=== PATIENT | female | born 1980 | race Caucasian/White ===

== ENCOUNTER 2019-04-10 21:19 | Emergency (ER) | payer MEDICAID, SELFPAY | END 2019-04-10 23:33 | disposition admitted as inpatient to this hospital (09) | LOC: ER 05-18 07:14 | PROVIDERS: Emergency Provider Family Medicine | DX: F43.21 Adjustment disorder with depressed mood (principal); R45.851 Suicidal ideations | CPT/HCPCS: 80053; 80306; 80307; 81001; 81025; 85025; 99284; 99285 ==

== ENCOUNTER 2019-04-10 21:19 | Inpatient (IN) | payer MEDICAID, SELFPAY ==
[2019-04-10 21:22] VITALS: BP 137/86; PULSE 101; RESP 18; TEMP 36.8; O2SAT 100; BMI 30.2
--- NOTE | 2019-04-10 21:39 | PC.NURSE ---
Patient states she has been under a lot of stress right now and that it worries her that the devil is using her mind and patient states she does not feel like hurting herself but that she did tell her CR group that she knew how she would kill herself if she had to. Patient states she is not suicidal but would like to stay the night for an evaluation.
[2019-04-10 21:45] VITALS: BP 121/85; PULSE 79; RESP 18; TEMP 36.8; O2SAT 100
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
[2019-04-10 22:13] LABS: Basophils # 0.1 10^3/uL (0.0-0.1); Eosinophils # 0.1 10^3/uL (0.0-0.8); Eosinophils % 0.6 %; Hematocrit 40.1 % (37.0-47.0); Hemoglobin 13.1 g/dL (11.5-15.3); Lymphocytes % 20.2 %; Mean Corpuscular HGB Conc 32.7 g/dL (30.0-36.0); Mean Corpuscular Hemoglobin 29.4 pg (28.0-34.0); Mean Corpuscular Volume 90.1 fL (81-99); Mean Platelet Volume 9.1 fL (7.4-10.4); Monocytes # 0.6 10^3/uL (0.2-0.9); Monocytes % 6.1 %; Neutrophils # 7.1 10^3/uL (1.8-7.7); Neutrophils % 71.5 %; Nucleated Red Blood Cells % 0 %; Platelet Count 386 10^3/cmm (130-400); Red Blood Count 4.45 10^6/uL (4.1-5.3); Red Cell Distribution Width 12.7 % (12.1-15.1); White Blood Count 9.9 10^3/uL (4.0-10.0)
[2019-04-10 22:23] LABS: HCG Qualitative Urine. Negative (Negative)
[2019-04-10 22:24] LABS: Add Urine Culture? No; Add Urine Microscopic? YES; Bacteria Urine 1+; Bilirubin Urine Neg (NEGATIVE); Blood Urine Neg (Negative); Glucose Urine UA 4+ (Normal); Ketones Urine Negative (Negative); Leukocyte Esterase Urine Negative (Negative); Nitrate Urine Negative (Negative); Protein Urine 1+ (Negative); RBC Urine 0-4 /hpf (0-2); Squamous Epithelial Cell Urine 0-4 (0-5); Urine Appearance Clear (CLEAR); Urine Color Yellow (Yellow); Urobilinogen Urine Norm (Negative); WBC Urine 0-4 /hpf (0-5); pH Urine 6.5 (5-7)
[2019-04-10 22:30] LABS: Alanine Aminotransferase 11 U/L (0-33); Albumin Level 4.1 g/dL (3.5-5.2); Alkaline Phosphatase 70 IU/L (35-105); Anion Gap 15.2 (5-19); Aspartate Amino Transferase 18 U/L (0-32); Blood Urea Nitrogen 12 mg/dL (6-20); Calcium 9.6 mg/dL (8.5-10.5); Carbon Dioxide 23 mmol/L (22-29); Chloride 99 mmol/L (98-107); Globulin 3.6 g/dL (1.3-4.6); Glomerular Filtration Rate 94.2 mL/min (90-130); Glucose 286 mg/dL (65-115); Potassium 4.2 mmol/L (3.5-5.1); Salicylate 0.7 mg/dL (3-10); Sodium 133 mmol/L (136-145); Total Bilirubin 0.2 mg/dL (0.15-1.2); Total Protein 7.7 g/dL (6.6-8.7)
[2019-04-10 22:40] LABS: Acetaminophen < 5.0 ug/mL (10-30); Alcohol Level < 10 mg/dL (0-10)
[2019-04-10 22:43] LABS: Amphetamines Screen Urine Negative (Negative); Barbiturates Screen Urine Negative (Negative); Benzodiazepines Screen Urine Negative (Negative); Cocaine Screen Urine Negative (Negative); Opiate Screen Urine Negative (Negative); PCP Screen Urine Negative (Negative); THC Screen Urine Negative (Negative)
[2019-04-10 23:33] VITALS: BP 117/74; PULSE 78; RESP 16; O2SAT 96
[2019-04-10 23:58] LABS: Glucose Point of Care 270 mg/dL (70-110)
--- NOTE | 2019-04-10 23:58 | PC.NURSE ---
Patients blood sugar in report from ER was 286. Asked the nurse what the plan was to address that and she had no idea the patient had an insulin pump let alone diabetic. She stated she would ask Dr Saxena and call me back then immediately the phone rang and the housecalls nurse stated ER said we were refusing the patient. I told her what is noted. Patient then came to unit with no return call from ER nurse and no further information on the pump. When addressing the patient she was alarmed that she was not told her blood sugar was that high because she would have done a correction dose. When retaken on our unit, the blood sugar was 270 and 3 units of novolog was administered per pump.
[2019-04-11 06:00] VITALS: BP 95/63; PULSE 65; RESP 18; TEMP 36.6; O2SAT 100
[2019-04-11 06:04] LABS: Glucose Point of Care 31 mg/dL (70-110)
--- NOTE | 2019-04-11 06:10 | PC.NURSE ---
Pt accu check was 31, pt A&O, pt states that 2 OJ s is all she needs, Dr and cook house supervisor notified. STAT lab draw ordered.
[2019-04-11 06:26] LABS: Glucose Point of Care 34 mg/dL (70-110)
--- NOTE | 2019-04-11 06:26 | PC.NURSE ---
Patient blood sugar re check is 34, given 2 orange juices one with sugar. Patient states she feels fine, will continue to monitor.
[2019-04-11 06:45] LABS: Glucose Point of Care 47 mg/dL (70-110)
[2019-04-11 07:16] LABS: Glucose 116 mg/dL (65-115)
[2019-04-11] MEDS: levothyroxine 112 mcg Tablet PO (08:41)
[2019-04-11] MEDS: lisinopril 10 mg Tablet PO (08:41)
[2019-04-11] MEDS: acyclovir 400 mg Tablet PO (08:41)
[2019-04-11] MEDS: levothyroxine 25 mcg Tablet PO (08:41)
[2019-04-11] MEDS: naproxen 500 mg Tablet PO (08:42)
[2019-04-11] MEDS: atorvastatin 40 mg Tablet 80 MG PO (08:42)
[2019-04-11 09:26] VITALS: BP 95/63; PULSE 65; RESP 18; TEMP 36.6; O2SAT 100
[2019-04-11 09:52] VITALS: BP 95/63; PULSE 65; RESP 18; TEMP 36.6; O2SAT 100
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
[2019-04-11 11:42] LABS: Glucose Point of Care 343 mg/dL (70-110)
== END 2019-04-11 11:54 | disposition home or self-care (01) | DRG 881 ==
LOC: ER 21:54 → NP 23:19
PROVIDERS: Admitting Provider Psychiatry & Neurology Psychiatry; Emergency Provider Family Medicine; Visit Provider Psychiatry & Neurology Psychiatry
DX: F43.21 Adjustment disorder with depressed mood (principal); F43.0 Acute stress reaction
CPT/HCPCS: 12345; 36415; 36416; 80053; 80306; 80307; 81001; 81025; 82947; 82962; 85025; 99284; J8499

== ENCOUNTER → 2019-09-03 08:26 | Outpatient (BNVA) | payer MEDICAID, SELFPAY | PROVIDERS: Visit Provider Registered Nurse | DX: N30.00 Acute cystitis without hematuria (principal); N89.8 Other specified noninflammatory disorders of vagina | CPT/HCPCS: 81000 ==

== ENCOUNTER → 2019-09-10 10:09 | Outpatient (BNVA) | payer MEDICAID, SELFPAY | PROVIDERS: Visit Provider Registered Nurse | DX: R82.90 Unspecified abnormal findings in urine (principal) | CPT/HCPCS: 81000 ==

== ENCOUNTER → 2020-03-24 09:09 | Outpatient (BNVA) | payer MEDICAID, SELFPAY | PROVIDERS: PCP Registered Nurse; Referring Provider Registered Nurse; Visit Provider Anesthesiology Pain Medicine | DX: G89.29 Other chronic pain (principal); M25.511 Pain in right shoulder; M79.18 Myalgia, other site | CPT/HCPCS: 20553; 99205; J1030; J3490 ==

== ENCOUNTER → 2020-04-21 08:46 | Outpatient (BNVA) | payer MEDICAID, SELFPAY | PROVIDERS: PCP Registered Nurse; Visit Provider Anesthesiology Pain Medicine | DX: M25.511 Pain in right shoulder (principal); M25.512 Pain in left shoulder | CPT/HCPCS: 99214 ==

== ENCOUNTER 2020-04-27 16:26 | Outpatient (CLI) | payer MEDICAID, SELFPAY | END 2020-04-27 16:27 | disposition home or self-care (01) | LOC: SPT 16:27 | PROVIDERS: PCP Registered Nurse; Visit Provider Podiatrist Foot & Ankle Surgery | DX: Z46.89 Encounter for fitting and adjustment of other specified devices (principal); S92.345D Nondisplaced fracture of fourth metatarsal bone, left foot, subsequent encounter for fracture with routine healing; S92.502D Displaced unspecified fracture of left lesser toe(s), subsequent encounter for fracture with routine healing; X58.XXXD Exposure to other specified factors, subsequent encounter | CPT/HCPCS: 97760; L4361 ==

== ENCOUNTER → 2020-05-18 14:51 | Outpatient (BNVA) | payer MEDICAID, SELFPAY | PROVIDERS: PCP Registered Nurse; Visit Provider Podiatrist Foot & Ankle Surgery | DX: S92.502D Displaced unspecified fracture of left lesser toe(s), subsequent encounter for fracture with routine healing (principal); S92.342D Displaced fracture of fourth metatarsal bone, left foot, subsequent encounter for fracture with routine healing; X58.XXXD Exposure to other specified factors, subsequent encounter | CPT/HCPCS: 73630 ==

== ENCOUNTER → 2020-06-01 13:19 | Outpatient (BNVA) | payer MEDICAID, SELFPAY | PROVIDERS: PCP Registered Nurse; Visit Provider Podiatrist Foot & Ankle Surgery | DX: S92.502D Displaced unspecified fracture of left lesser toe(s), subsequent encounter for fracture with routine healing (principal); X58.XXXD Exposure to other specified factors, subsequent encounter | CPT/HCPCS: 73630 ==

== ENCOUNTER → 2020-06-16 10:18 | Outpatient (BNVA) | payer MEDICAID, SELFPAY | PROVIDERS: PCP Registered Nurse; Visit Provider Anesthesiology Pain Medicine | DX: M54.12 Radiculopathy, cervical region (principal); M25.511 Pain in right shoulder; M25.512 Pain in left shoulder | CPT/HCPCS: 99214 ==

== ENCOUNTER 2020-07-08 10:09 | Outpatient (CLI) | payer MEDICAID, SELFPAY ==
--- NOTE | 2020-07-08 11:00 | CT_ITS ---
WS: [id number] CT cervical spine. Additional two-dimensional coronal and sagittal reconstruction was performed. 07/08 Clinical Data: M54.12 - Radiculopathy, cervical region Comparison: None. DLP: 1572.[address] scans at [facility] use at least one of these dose optimization techniques: automat ed exposure control; mA and/or kV adjustment per patient size (includes targeted exams where dose is matched to clinical indication); or iterative reconstruction. Findings: No compression fractures are seen. The disc heights are normal. The spinous processes are in good ali gnment. The odontoid is unremarkable. There is no prevertebral soft tissue swelling. The soft tissues of the cervical spine and the lung apices are not remarkable. C2-C3: No disc bulge, canal stenosis or foraminal stenosis is seen. C3-C4: No disc bulge, canal stenosis or foraminal stenosis is seen. C4-C5: No disc bulge, canal stenosis or foraminal stenosis is seen. C5-C6: No disc bulge, canal stenosis or foraminal stenosis is seen. C6-C7: No disc bulge, canal stenosis or foraminal stenosis is seen. C7-T1: No disc bulge, canal stenosis or foraminal stenosis is seen. CT/CT cervical spin wo con* [id number] Impression: Negative CT scan of the cervical spine.
== END 2020-07-08 10:10 | disposition home or self-care (01) ==
PROVIDERS: PCP Registered Nurse; Visit Provider Anesthesiology Pain Medicine
DX: M54.12 Radiculopathy, cervical region (principal)
CPT/HCPCS: 72125

== ENCOUNTER → 2020-07-14 09:53 | Outpatient (BNVA) | payer MEDICAID, SELFPAY | PROVIDERS: PCP Registered Nurse; Visit Provider Anesthesiology Pain Medicine | DX: G89.29 Other chronic pain (principal); M54.2 Cervicalgia; M25.511 Pain in right shoulder; M25.512 Pain in left shoulder; G62.9 Polyneuropathy, unspecified | CPT/HCPCS: 99214 ==

== ENCOUNTER → 2020-07-20 10:19 | Outpatient (BNVA) | payer MEDICAID, SELFPAY | PROVIDERS: PCP Registered Nurse; Visit Provider Podiatrist Foot & Ankle Surgery | DX: S92.342D Displaced fracture of fourth metatarsal bone, left foot, subsequent encounter for fracture with routine healing (principal); X58.XXXD Exposure to other specified factors, subsequent encounter | CPT/HCPCS: 73630 ==

== ENCOUNTER → 2020-08-17 10:57 | Outpatient (BNVA) | payer MEDICAID, SELFPAY | PROVIDERS: PCP Registered Nurse; Visit Provider Podiatrist Foot & Ankle Surgery | DX: S92.342A Displaced fracture of fourth metatarsal bone, left foot, initial encounter for closed fracture (principal); X58.XXXA Exposure to other specified factors, initial encounter | CPT/HCPCS: 73630 ==

== ENCOUNTER → 2020-10-27 12:16 | Outpatient (BNVA) | payer MEDICAID, SELFPAY | PROVIDERS: PCP Registered Nurse; Visit Provider Specialist | DX: R20.0 Anesthesia of skin (principal); R20.2 Paresthesia of skin; M54.2 Cervicalgia; M25.511 Pain in right shoulder; M25.512 Pain in left shoulder | CPT/HCPCS: 99204 ==

== ENCOUNTER → 2020-11-23 14:54 | Outpatient (BNVA) | payer MEDICAID, SELFPAY | PROVIDERS: PCP Registered Nurse; Visit Provider Podiatrist Foot & Ankle Surgery | DX: S92.342D Displaced fracture of fourth metatarsal bone, left foot, subsequent encounter for fracture with routine healing (principal); X58.XXXD Exposure to other specified factors, subsequent encounter | CPT/HCPCS: 73630 ==

== ENCOUNTER 2020-11-25 08:41 | Outpatient (CLI) | payer MEDICAID, SELFPAY ==
--- NOTE | 2020-11-25 09:30 | MR_ITS ---
WS: [id number] MRI CERVICAL SPINE NONCONTRAST TECHNIQUE: Sagittal T1, T2 and STIR imaging. Axial T2, gradient, and fiesta imaging. CLINICAL INFORMATION: M54.2 - Cervicalgia COMPARISON: None. FINDINGS: Straightening of the normal cervical lordosis. Cord signal is normal. No high-grade central canal huan rowing. C2-C3: Normal. C3-C4: Mild endplate osteophytic ridging. Mild facet arthropathy. Mild right bony foraminal narrowing . Spinal canal is patent. C4-C5: Disc osteophytic ridging. Mild bilateral bony foraminal narrowing. Mild facet arthropathy. Spi nal canal is patent. C5-C6: Mild disc osteophytic ridging. Mild to moderate left and no significant right foraminal narrow ing. Mild facet arthropathy. Spinal canal is patent. C6-C7: Mild endplate osteophytic ridging. Mild left foraminal narrowing. Spinal canal is patent. Mild facet arthropathy. C7-T1: Mild left bony foraminal narrowing. Right foramen is patent. Spinal canal is patent. Asymmetric enlargement of the right thyroid gland although no visualized nodules. This could be follo wed up with ultrasound. Visualized brain stem structures: Normal. Prevertebral soft tissues: Normal. MR/MR cervical spin wo con* [id number] IMPRESSION: 1. Straightening of the normal cervical lordosis. Cord signal is normal. 2. Osteophytic ridging with multilevel bony foraminal narrowing more prominent at left C4-C5, left C5-C6, and left C6-C7. Mild to moderate left C5-C6 bony fo raminal narrowing. 3. Mild disc bulging C5-C6 and C6-C7. No significant central canal stenosis. 4. Asymmetric enlargement of the right thyroid gland although no visualized no dules. This could be followed up with ultrasound.
== END 2020-11-25 08:42 | disposition home or self-care (01) ==
LOC: RADSHAW 08:44
PROVIDERS: PCP Registered Nurse; Visit Provider Specialist
DX: M54.2 Cervicalgia (principal)
CPT/HCPCS: 72141

== ENCOUNTER → 2020-12-06 12:31 | Outpatient (BNVA) | payer MEDICAID, SELFPAY | PROVIDERS: PCP Registered Nurse; Visit Provider Specialist | DX: G56.03 Carpal tunnel syndrome, bilateral upper limbs (principal); R20.0 Anesthesia of skin; R20.2 Paresthesia of skin | CPT/HCPCS: 95910 ==

== ENCOUNTER → 2021-02-23 12:18 | Outpatient (BNVA) | payer MEDICAID, SELFPAY | PROVIDERS: PCP Registered Nurse; Visit Provider Specialist | DX: M54.12 Radiculopathy, cervical region (principal); E04.8 Other specified nontoxic goiter | CPT/HCPCS: 99214 ==

== ENCOUNTER → 2021-03-10 09:37 | Outpatient (BNVA) | payer MEDICAID, SELFPAY | PROVIDERS: PCP Registered Nurse; Referring Provider Specialist; Visit Provider Specialist | DX: G56.03 Carpal tunnel syndrome, bilateral upper limbs (principal) | CPT/HCPCS: 95861; 99202; 99212 ==

== ENCOUNTER → 2021-08-17 10:59 | Outpatient (BNVA) | payer MEDICAID, SELFPAY | PROVIDERS: PCP Registered Nurse; Visit Provider Registered Nurse | DX: Z79.1 Long term (current) use of non-steroidal anti-inflammatories (NSAID) (principal) | CPT/HCPCS: 80053 ==

== ENCOUNTER → 2021-08-24 13:19 | Outpatient (BNVA) | payer MEDICAID, SELFPAY | PROVIDERS: PCP Registered Nurse; Visit Provider Registered Nurse | DX: Z01.419 Encounter for gynecological examination (general) (routine) without abnormal findings (principal); Z78.9 Other specified health status; Z12.39 Encounter for other screening for malignant neoplasm of breast; G56.03 Carpal tunnel syndrome, bilateral upper limbs; E04.9 Nontoxic goiter, unspecified; E10.9 Type 1 diabetes mellitus without complications; R89.9 Unspecified abnormal finding in specimens from other organs, systems and tissues; N76.0 Acute vaginitis; B96.89 Other specified bacterial agents as the cause of diseases classified elsewhere | CPT/HCPCS: 87070; 87077; 87184; 87205 ==

== ENCOUNTER 2021-09-06 09:14 | Outpatient (CLI) | payer MEDICAID, SELFPAY ==
--- NOTE | 2021-09-06 10:00 | US_ITS ---
WS: [id number] THYROID ULTRASOUND HISTORY: E04.9 - Nontoxic goiter, unspecified COMPARISON: None available. Right lobe: 2.4 cm x 2.2 cm x 5.5 cm (w x ap x l). Volume: 15.0 cm3. Enlarged heterogeneous coarsened thyroid. There is increased vascularity but no discrete nodule. Ther e are areas of increased echogenicity scattered throughout the gland. Left lobe: 1.7 cm x 2.1 cm x 4.4 cm (w x ap x l). Volume: 7.9 cm3. Mildly enlarged heterogeneous thyroid. The LEFT lobe is not as enlarged as the RIGHT although there i s increased vascularity. No nodule. Isthmus: 0.1 cm. US/US thyroid [id number] IMPRESSION: 1. Enlarged thyroid gland with very coarse echotexture mild increased vascular ity. Consider Marivel's thyroiditis. 2. No discrete nodule.
== END 2021-09-06 09:15 | disposition home or self-care (01) ==
LOC: RAD 09:15
PROVIDERS: PCP Registered Nurse; Visit Provider Registered Nurse
DX: E04.9 Nontoxic goiter, unspecified (principal)
CPT/HCPCS: 76536

== ENCOUNTER → 2021-09-19 08:26 | Outpatient (BNVA) | payer MEDICAID, SELFPAY | PROVIDERS: PCP Registered Nurse; Visit Provider Registered Nurse | DX: B96.89 Other specified bacterial agents as the cause of diseases classified elsewhere (principal); N76.0 Acute vaginitis; R89.9 Unspecified abnormal finding in specimens from other organs, systems and tissues | CPT/HCPCS: 87070; 87205 ==

== ENCOUNTER → 2021-10-02 07:59 | Outpatient (BNVA) | payer MEDICAID, SELFPAY | PROVIDERS: PCP Registered Nurse; Referring Provider Registered Nurse; Visit Provider Specialist | DX: G56.03 Carpal tunnel syndrome, bilateral upper limbs (principal) | CPT/HCPCS: 73110; 99204 ==

== ENCOUNTER → 2021-10-10 10:22 | Outpatient (BNVA) | payer MEDICAID, SELFPAY | PROVIDERS: PCP Registered Nurse; Visit Provider Registered Nurse | DX: E06.3 Autoimmune thyroiditis (principal); E03.9 Hypothyroidism, unspecified | CPT/HCPCS: 84432; 84439; 84443; 84481; 86376; 86800 ==

== ENCOUNTER 2021-10-27 07:57 | Day surgery (SDC) | payer MEDICAID, SELFPAY ==
[2021-10-26 09:50] VITALS: BMI 32.0
[2021-10-27 08:25] VITALS: BP 138/81; PULSE 84; RESP 16; TEMP 36.9; O2SAT 100
[2021-10-27] MEDS: sodium chloride 0.9% 1,000 ML 30 ML IV (08:45)
[2021-10-27 08:47] LABS: Glucose Point of Care 240 mg/dL (70-110)
--- NOTE | 2021-10-27 08:56 | ANES.PREANE2 ---
Pre-Anesthetic Assessment Height/Weight: Height 1.57 m Weight 79.379 kg Temp Pulse Resp BP Pulse Ox O2 Del Method 98.5 F 84 16 138/81 100 10/27/21 08:25 10/27/21 08:25 10/27/21 08:25 10/27/21 08:25 10/27/21 08:25 10/27/21 08:26 Preop Diagnosis: Right carpal tunnel syndrome Operation Date: 10/27/21 09:20 Proposed Procedures p Carpal Tunnel Release(Right) - Dodie Estrella MD Familial anesthetic complications: none Was Beta Madie taken within 24 hours: N/A Was Clonidine taken within 24 hours: N/A Last intake: Intake Last Liquid Date 10/26/21 Last Liquid Time 21:50 Last Solid Date 10/26/21 Last Solid Time 22:30 Social No alcohol and No tobacco Exam alert, oriented x 3 and regular rate & rhythm Airway Submandibular: within normal limits Cervical ROM: within normal limits Mallampati: Class II Dentition: false CV/HEM Hypertension Metabolic Diabetes Mellitus [facility] Osteoarthritis/DJD Neuropsych Anxiety, Depression and Neuropathy Anesthetic Plan ASA status: 3 Anesthesia: MAC and Regional (specify below) Medications/Allergies Home Medications Medication Instructions Recorded Confirmed Last Taken Type Novolog Insulin Pump See Rx Instructions .Route .COMPLEX 04/10/19 10/27/21 10/27/21 History lisinopril 10 mg tablet 10 mg PO DAILY 04/10/19 10/27/21 10/26/21 History rosuvastatin 40 mg tablet (Crestor) 40 mg PO DAILY 04/11/19 10/27/21 10/26/21 History ezetimibe 10 mg tablet (Zetia) 10 mg PO DAILY 03/24/20 10/27/21 10/26/21 History Carbon fiber insert #1 ea 06/01/20 10/03/21 Unknown Rx naproxen 500 mg tablet See Rx Instructions .Route 08/17/21 10/27/21 10/26/21 Rx .COMPLEX #60 tabs levothyroxine 200 mcg capsule 200 mcg PO DAILY 30 days #30 caps 10/12/21 10/27/21 10/26/21 Rx acyclovir 400 mg tablet 400 mg PO DAILY 10/27/21 10/27/21 Unknown History Allergies Allergy/AdvReac Type Severity Reaction Status Date / Time azithromycin [From Zithromax] Allergy ALGY-Hives Verified 10/26/21 09:47 oxycodone Allergy Unknown Verified 10/26/21 09:47 Penicillins Allergy Unknown Verified 10/26/21 09:47 [facility] Anesthesia Medical History delivery delivered Hyperlipidemia Hypertension Numbness and tingling of both upper extremities Opioid contract exists Type 1 diabetes mellitus Surgical History History of partial hysterectomy History of tubal ligation Family History Father Cancer Mother side Father Diabetes Social History Smoking and tobacco status: never smoked Alcohol intake: never Adopted: No Caregiver/support person: No Lives independently: No Household members: spouse and children Marital status: Current occupational status: disabled History of recent travel: No Sexually active: Yes Current gender identity: Female Female Reproductive History Date of last menstrual period: 03/28/19 Data Anesthesia Cardiac Studies: No Data to Display
[2021-10-27] MEDS: vancomycin 1,000 MG in sodium chloride 0.9% 250 ML 250 MG IV (09:00)
[2021-10-27] MEDS: CELEcoxib 200 mg Capsule 400 MG PO (09:00)
[2021-10-27] MEDS: acetaminophen 1,000 MG/100 ML PIGGYBACK 400 MG IV (09:21)
--- NOTE | 2021-10-27 09:43 | P.HPUD_ITS ---
Surgery/Procedure H&P Update DATE OF PROCEDURE: October 27, 2021 DATE H&P PERFORMED: 10/02/21 H&P UPDATE INFORMATION: I have reviewed H&P completed within last 30 days, I have examined patient prior to procedure, No changes to prior documentation and H&P is in [facility] [place] on date indicated PREOP DIAGNOSIS: Right carpal tunnel syndrome PLANNED PROCEDURE: Operation Date: 10/27/21 09:20 Proposed Procedures p Carpal Tunnel Release(Right) - Dodie Estrella MD Related Problem List Diagnoses (1) Carpal tunnel syndrome on right:
--- NOTE | 2021-10-27 10:24 | PM.OP ---
Operative Report Date of procedure: October 27, 2021 Pre-op diagnosis: Right carpal tunnel syndrome Post-op diagnosis: Right carpal tunnel syndrome Post-op findings: Significant compression by the transverse carpal ligament across the median nerve. Procedure done: Right carpal tunnel release Specimens removed/disposition: None Pathology: none sent Surgeon: Dodie Estrella Anesthesia: General (Intubated, ASA 3) Estimated blood loss (mL): 2 Tourniquet time (min): 20 At 250 mmHg IV fluids (mL): 200 Urine output (mL): 0 (No Villa) Complications: None Findings: Compression across the median nerve from the transverse carpal ligament Condition: stable Disposition: PACU (Then return to same-day surgery with discharge to home with family) Brief History: Humaira Vizcarra is a new 41 year old female patient who is here today due to bilateral carpal tunnel syndrome.? Patient has NCV from 12/06/20 and EMG from 03/10/[address] Mahoney which were consistent with carpal tunnel syndrome. Patient states that she has bilateral hand numbness when she sleeps on them.? Patient states right hand is worse than left.? Actually, upon further questioning, the patient notes that her hands are rather consistently numb, but she has blamed her diabetes. After consultation in the office, she wished to proceed with right carpal tunnel release. This was scheduled for her. Questions were answered and consents were signed. Procedure: The patient was brought to the operating theater. She had a general intubated anesthesia, ASA 3. The tourniquet was elevated to 250 mmHg for a total tourniquet time of 20 minutes. The patient was also given vancomycin 1 g preoperatively. The arm was then prepped and draped with DuraPrep in usual fashion with the arm draped free. A surgical pause was performed. At the time, the surgical pause, we confirmed the site and side of surgery. We also confirmed the patient's identity, appropriate and timely administration of preoperative antibiotics and preoperative surgical markings. An incision was then made along the thenar crease. The incision crossed the wrist joint in a curvilinear fashion. Dissection continued through skin and soft tissues using a scalpel. The palmaris longus was identified along with the transverse carpal ligament. Each of these was released carefully to avoid injury to the median nerve. We were able to dissect gently into the carpal canal which was noted to be quite tight with significant compression across the median nerve. The nerve was visualized and was an hourglass shape.? Following release of the transverse carpal ligament, the canal was palpated to assure there was no bony encroachment upon the canal. The canal was then palpated distally and proximally to assure that my small finger passed easily without impingement. Finding this to be so, attention was directed to closure. The wound was irrigated with Marcaine plain, and this was also injected into the subcutaneous tissues.? The incision was then closed with 3-0 nylon in an interrupted mattress fashion. Sterile dressing was then placed consisting of Dermabond, OpSite, fluffed fluffs, sterile soft roll, and an Julian wrap. The tourniquet was released after 20 minutes. There were no complications. There were no specimens. The procedure was well tolerated. Plan is the patient will be discharged home. Related Problem List Diagnoses (1) Carpal tunnel syndrome on right:
[2021-10-27 10:27] VITALS: BP 120/71; PULSE 117; RESP 24; TEMP 36.4; O2SAT 100
[2021-10-27 10:32] VITALS: BP 121/64; PULSE 120; RESP 20; O2SAT 100
[2021-10-27 10:38] VITALS: BP 124/79; PULSE 110; RESP 21; TEMP 36.8; O2SAT 100
[2021-10-27 10:43] VITALS: BP 125/83; PULSE 106; RESP 18; TEMP 36.8; O2SAT 100
--- NOTE | 2021-10-27 15:54 | ANE.PACU2 ---
Inpatient post-anesthesia follow up: Airway intact: Yes Vital signs: Temperature 98.3 F Pulse Rate 106 Respiratory Rate 18 Blood Pressure 125/83 Pulse Oximetry 100 Oxygen Delivery Me thod Room Air Oxygen Flow Rate Fraction of Inspir ed Oxygen Hydration adequate: Yes Nausea and vomiting: No Pain level: 2 Mental status: Baseline
== END 2021-10-27 11:32 | disposition home or self-care (01) ==
PROVIDERS: PCP Registered Nurse; Visit Provider Specialist
PROC: (CPT 64721; principal; 2021-10-27 09:20)
DX: G56.01 Carpal tunnel syndrome, right upper limb (principal); I10 Essential (primary) hypertension; E66.01 Morbid (severe) obesity due to excess calories; Z68.32 Body mass index [BMI] 32.0-32.9, adult; Z79.4 Long term (current) use of insulin; E78.5 Hyperlipidemia, unspecified; E10.40 Type 1 diabetes mellitus with diabetic neuropathy, unspecified
CPT/HCPCS: 64721; 36416; 82962; J0330; J1100; J1885; J2405; J2704; J3010; J3370; J3490; J7030; J7050

== ENCOUNTER → 2021-11-08 11:02 | Outpatient (BNVA) | payer MEDICAID, SELFPAY | PROVIDERS: PCP Registered Nurse; Visit Provider Nurse Practitioner Family | DX: Z98.890 Other specified postprocedural states (principal) | CPT/HCPCS: 99024; 99213 ==

== ENCOUNTER 2022-02-28 16:07 | Outpatient (CLI) | payer MEDICAID, SELFPAY | END 2022-02-28 16:08 | disposition home or self-care (01) | LOC: SPT 16:08 | PROVIDERS: PCP Registered Nurse; Visit Provider Specialist | DX: Z46.89 Encounter for fitting and adjustment of other specified devices (principal); G56.02 Carpal tunnel syndrome, left upper limb | CPT/HCPCS: 97760; 99214; L3908 ==

== ENCOUNTER 2022-03-16 08:05 | Day surgery (SDC) | payer MEDICAID, SELFPAY ==
[2022-03-15 10:14] VITALS: BMI 32.0
[2022-03-16 08:16] VITALS: BP 131/70; PULSE 65; RESP 16; TEMP 35.5; O2SAT 100
--- NOTE | 2022-03-16 08:48 | P.ANESASSM_ITS ---
Pre-Anesthetic Assessment Height/Weight: Height 1.57 m Weight 79.379 kg Temp Pulse Resp BP Pulse Ox O2 Del Method 96 F L 65 16 131/70 100 03/16/22 08:16 03/16/22 08:16 03/16/22 08:16 03/16/22 08:16 03/16/22 08:16 03/16/22 08:16 Preop Diagnosis: Left carpal tunnel syndrome Operation Date: 03/16/22 10:00 Proposed Procedures p LEFT CARPAL TUNNEL RELEASE 12652,G56.00(Left) - Dodie Estrella MD Familial anesthetic complications: None Was Beta Madie taken within 24 hours: N/A Was Clonidine taken within 24 hours: N/A Last intake: > 8hrs Social No alcohol and No tobacco Exam alert, oriented x 3, clear to auscultation bilaterally and regular rate & rhythm Airway Mallampati: Class II Dentition: false CV/HEM Hypertension Metabolic Diabetes Mellitus, Hyperlipidemia and Thyroid Disease Anesthetic Plan ASA status: 3 Anesthesia: General Risk of > 500 ml blood loss (7ml/kg in children): No Medications/Allergies Home Medications Medication Instructions Recorded Confirmed Last Taken Type Novolog Insulin Pump See Rx Instructions .Route .COMPLEX 04/10/19 03/16/22 03/16/22 History lisinopril 10 mg tablet 10 mg PO DAILY 04/10/19 03/15/22 03/15/22 History rosuvastatin 40 mg tablet (Crestor) 40 mg PO DAILY 04/11/19 03/15/22 03/15/22 History ezetimibe 10 mg tablet (Zetia) 10 mg PO DAILY 03/24/20 03/15/22 03/15/22 History Carbon fiber insert #1 ea 06/01/20 02/28/22 Unknown Rx levothyroxine 200 mcg capsule 200 mcg PO DAILY 30 days #30 caps 10/12/21 03/15/22 03/16/22 Rx tramadol 50 mg tablet 50 mg PO Q8H PRN pain #20 tabs 10/27/21 03/16/22 02/18/22 Rx naproxen 500 mg tablet See Rx Instructions .Route 02/13/22 03/15/22 02/27/22 Rx .COMPLEX #60 tabs cock up splint #1 ea 02/28/22 02/28/22 Unknown Rx acyclovir 400 mg tablet See Rx Instructions .Route 03/07/22 03/15/22 03/15/22 Rx .COMPLEX #90 tabs Allergies Allergy/AdvReac Type Severity Reaction Status Date / Time oxycodone Allergy Intermediate Unknown Verified 03/16/22 08:30 azithromycin [From Zithromax] Allergy ALGY-Hives Verified 03/15/22 10:12 Penicillins Allergy Unknown Verified 03/15/22 10:12 [facility] Anesthesia Medical History delivery delivered Hyperlipidemia Hypertension Numbness and tingling of both upper extremities Opioid contract exists Type 1 diabetes mellitus Surgical History History of partial hysterectomy History of tubal ligation Family History Father Cancer Mother side Father Diabetes Social History Smoking and tobacco status: never smoked Alcohol intake: never Adopted: No Caregiver/support person: No Lives independently: No Household members: spouse and children Marital status: Current occupational status: disabled History of recent travel: No Sexually active: Yes Current gender identity: Female Female Reproductive History Date of last menstrual period: 03/28/19 Data Anesthesia Cardiac Studies: No Data to Display
[2022-03-16] MEDS: CELEcoxib 200 mg Capsule 400 MG PO (08:49)
[2022-03-16] MEDS: acetaminophen 1,000 MG/100 ML PIGGYBACK 400 MG IV (08:50)
[2022-03-16] MEDS: sodium chloride 0.9% 1,000 ML 30 ML IV (08:50)
--- NOTE | 2022-03-16 09:00 | P.HPUD_ITS ---
Surgery/Procedure H&P Update DATE OF PROCEDURE: March 16, 2022 DATE H&P PERFORMED: 02/28/22 H&P UPDATE INFORMATION: I have reviewed H&P completed within last 30 days, I have examined patient prior to procedure, No changes to prior documentation and H&P is in [facility] [place] [facility] EMR on date indicated PREOP DIAGNOSIS: Left carpal tunnel syndrome PLANNED PROCEDURE: Operation Date: 03/16/22 10:00 Proposed Procedures p LEFT CARPAL TUNNEL RELEASE 37321,G56.00(Left) - Dodie Estrella MD Related Problem List Diagnoses (1) Carpal tunnel syndrome, left:
[2022-03-16 09:15] LABS: Glucose Point of Care 184 mg/dL (70-110)
[2022-03-16] MEDS: clindamycin 600 MG/50 ML PREMIX 100 MG IV (10:25)
[2022-03-16 11:29] VITALS: BP 103/56; PULSE 75; RESP 15; TEMP 36.1; O2SAT 100
[2022-03-16 11:35] VITALS: BP 84/71; PULSE 72; RESP 11; O2SAT 100
[2022-03-16 11:40] VITALS: BP 126/84; PULSE 77; RESP 16; O2SAT 100
[2022-03-16 11:45] VITALS: BP 120/69; PULSE 79; RESP 16; TEMP 36.4; O2SAT 100
--- NOTE | 2022-03-16 11:50 | PM.OP ---
Operative Report Date of procedure: March 16, 2022 Pre-op diagnosis: Left carpal tunnel syndrome Post-op diagnosis: Left carpal tunnel syndrome Post-op findings: Severe compression across the median nerve with purplish discoloration Procedure done: Left carpal tunnel release Implants: None Pathology: none sent Surgeon: Dodie Estrella Dumper Bulk System: None Anesthesia: General (Per LMA, ASA 3) Estimated blood loss (mL): 2 Tourniquet time (min): 25 (At 250 mmHg) IV fluids (mL): 500 Urine output (mL): 0 (No [place]) Complications: None Findings: Severe compression across carpal canal with significant narrowing of the median nerve and purplish discoloration. Condition: stable Disposition: PACU (Then return to preop for discharge to home) Brief History: Humaira Vizcarra is an established 42 year old female patient who is here today for left carpal tunnel release. Patient has had right carpal tunnel release completed on 10/27/21. Patient has symptoms consistent with carpal tunnel syndrome in the left.? She is doing very well from her right carpal tunnel release, and she wanted to proceed with the left which gave her very similar symptoms. Risks and complications were discussed including nerve damage and wound healing issues preoperatively in the clinic. Consents were signed, and questions were answered. Procedure: The patient was brought to the operating theater. The patient had a general anesthesia per LMA, ASA 3. The tourniquet was elevated to 250 mmHg for a total tourniquet time of 25 minutes. The patient was also given clindamycin 600 mg preoperatively. The arm was then prepped and draped with DuraPrep in usual fashion with the arm draped free. A surgical pause was performed. At the time, the surgical pause, we confirmed the site and side of surgery. We also confirmed the patient's identity, appropriate and timely administration of preoperative antibiotics and preoperative surgical markings. An incision was then made along the thenar crease. The incision crossed the wrist joint in a curvilinear fashion. Dissection continued through skin and soft tissues using a scalpel. The palmaris longus was identified along with the transverse carpal ligament. Each of these was released carefully to avoid injury to the median nerve. We were able to dissect gently into the carpal canal which was noted to be quite tight with significant compression across the median nerve. The nerve was visualized and was an hourglass shape with purplish discoloration. The canal was subsequently palpated to assure there was no bony encroachment upon the canal. There was a quite thickened fibrous tissue within the canal, and this was opened longitudinally as well. The canal was then palpated distally and proximally to assure that my small finger was passed easily without impingement. Finding this to be so, attention was directed to closure. The wound was irrigated with ropivacaine plain. It was then closed with 3-0 nylon in an interrupted mattress fashion. Sterile dressing was then placed consisting of Dermabond, OpSite, fluffed fluffs, sterile soft roll, and an Julian wrap. The tourniquet was released after 25 minutes. There were no complications. There were no specimens. The procedure was well tolerated. Plan is the patient will be discharged home. Related Problem List Diagnoses (1) Carpal tunnel syndrome, left:
[2022-03-16 12:15] VITALS: BP 125/67; PULSE 71; RESP 18; O2SAT 100
[2022-03-16] MEDS: TRAMadol 50 mg Tablet PO (12:18)
--- NOTE | 2022-03-16 13:25 | ANE.PACU2 ---
Inpatient post-anesthesia follow up: Airway intact: Yes Vital signs: Temperature 97.5 F Pulse Rate 71 Respiratory Rate 18 Blood Pressure 125/67 Pulse Oximetry 100 Oxygen Delivery Me thod Room Air Oxygen Flow Rate 6 Fraction of Inspir ed Oxygen Hydration adequate: Yes Nausea and vomiting: No Pain level: 1 Mental status: Baseline
== END 2022-03-16 13:00 | disposition home or self-care (01) ==
PROVIDERS: PCP Registered Nurse; Visit Provider Specialist
PROC: (CPT 64721; principal; 2022-03-16 09:50)
DX: G56.02 Carpal tunnel syndrome, left upper limb (principal); I10 Essential (primary) hypertension; E10.9 Type 1 diabetes mellitus without complications; Z79.4 Long term (current) use of insulin; E78.5 Hyperlipidemia, unspecified
CPT/HCPCS: 64721; 36416; 82962; J0131; J2405; J2704; J3010; J3490; J7030

== ENCOUNTER → 2022-03-28 10:21 | Outpatient (BNVA) | payer MEDICAID, SELFPAY | PROVIDERS: PCP Registered Nurse; Visit Provider Nurse Practitioner Family | DX: Z98.890 Other specified postprocedural states (principal) | CPT/HCPCS: 99024 ==

== ENCOUNTER → 2023-11-21 12:26 | Outpatient (BNVA) | payer MEDICAID, SELFPAY | PROVIDERS: PCP Registered Nurse; Visit Provider Podiatrist Foot & Ankle Surgery | DX: E10.9 Type 1 diabetes mellitus without complications (principal) | CPT/HCPCS: 99203 ==